=== PATIENT | female | born 1940 | race Hispanic/Latino ===

== ENCOUNTER 2017-01-30 12:27 | Observation (INO) | payer MEDICARE, OTHER ==
--- NOTE | 2017-01-30 12:39 | ED PDOC ---
HPI: Trauma/Fall - HPI Time Seen by Provider: 01/30/17 12:30 History Per: Patient History/Exam Limitations: no limitations Onset/Duration Of Symptoms: Mins Location Of Injury: Right: Foot Additional Complaint(s): Esthela Culver is a 76 year old female that presents to the ED after the headboard of her bed slipped and fell onto her right foot after she had attempted to move it. Patient reports that the headboard had an attached mirror , which cut her toes. Tetanus not UTD. Past Medical History Reviewed: Historical Data, Nursing Documentation, Vital Signs - Surgical History Other surgeries: open heart surgery - Family History Family History: States: Unknown Family Hx - Home Medications Home Medications: Ambulatory Orders Medication Instructions Recorded Cephalexin [Keflex] 500 mg PO BID #14 capsule 01/30/17 - Allergies Allergies/Adverse Reactions: Allergies Allergy/AdvReac Type Severity Reaction Status Date / Time No Known Allergies Allergy Verified 01/30/17 12:31 Review of Systems Musculoskeletal: Positive for: Other (lacerations along toes of right foot) Physical Exam - Reviewed Nursing Documentation Reviewed: Yes Vital Signs Reviewed: Yes - Physical Exam Appears: Positive for: Non-toxic, No Acute Distress Head Exam: Positive for: ATRAUMATIC, NORMOCEPHALIC Skin: Positive for: Normal Color, Warm Eye Exam: Positive for: Normal appearance, EOMI, PERRL Pulses-Post. Tibialis (L): 2+ Pulses-Post. Tibialis (R): 2+ Extremity: Positive for: Tenderness (tenderness to toes of right foot), Swelling (mild swelling toes of right foot), Other (Lacerations through subcutaneous fat, damaging nail beds, on toes 2, 3, and 4 on right foot. Actively bleeding. toe 3 has signficant avulsion of skin with muscle exposed. ) Neurologic/Psych: Positive for: Alert, Oriented. Negative for: Motor/Sensory Deficits - ECG ECG: Positive for: Interpreted By Me ECG Rhythm: Positive for: Normal QRS, Sinus Bradycardia (54), ST/T Changes Rate: 54 Medical Decision Making Medical Decision Making: Impression: Lacerations on Toes of Right Foot Plan: * X-Ray Right Foot-fx noted. * Ibuprofen 600 mg PO * TDAP * Podiatry consult * Reevaluation 15:30 Patient will go to OR for laceration repair due to extent of injury. Pt will be admitted to [facility] for same say procedure. Scribe Attestation: Documented by Ruth Vallecillo, acting as a scribe for Greta Perkins PA-C. Provider Scribe Attestation: All medical record entries made by the Scribe were at my direction and personally dictated by me. I have reviewed the chart and agree that the record accurately reflects my personal performance of the history, physical exam, medical decision making, and the department course for this patient. I have also personally directed, reviewed, and agree with the discharge instructions and disposition. Disposition - Clinical Impression Clinical Impression: Laceration, Toe injury - Patient ED Disposition Is Patient to be Admitted: Yes - Disposition Referrals: Podiatry Clinic [Outside] Disposition Time: 15:30 Condition: STABLE Prescriptions: Cephalexin [Keflex] 500 mg PO BID #14 capsule - Pt Status Changed To: Hospital Disposition Of: SDS- Endo,OR,Cath,IR
[2017-01-30] MEDS ORDERED: Lidocaine 1% Inj (20ml) IJ STA (12:41)
[2017-01-30] MEDS ORDERED: Lidocaine 1% Inj (20ml) ONE ×2 (13:13→17:14)
--- NOTE | 2017-01-30 13:27 | RAD ---
PROCEDURE: Right Foot Radiographs. HISTORY: Direct trauma COMPARISON: None. FINDINGS: BONES: Crush injuries involving the distal patricio of the 2nd 3rd and possibly full with digits. JOINTS: Normal. SOFT TISSUES: Soft tissue swelling attests to the acuity of the fracture. OTHER FINDINGS: None. IMPRESSION: Fractures involving distal tuft 2nd 3rd and possibly 4th digits. Associated soft tissue swelling identified. No preliminary report provided by emergency department personnel.
--- NOTE | 2017-01-30 14:00 | CP.PCM.CON ---
History of Present Illness - History of Present Illness History of Present Illness: Consult note for Dr. Deshpande 76 year old female presents to ED with lacerations to the right foot. Patient states that around 11:30 am today she was moving a heavy mirror and it fell on her foot. She states that it was bleeding a lot and she covered it with rags. She admits that she takes aspirin. Denies any pain on palpation to the digits on her right foot. Denies n/v/f/c/sob/cp. Past Patient History - Past Social History Smoking Status: Unknown If Ever Smoked - CARDIAC Hx Cardiac Disorders: Yes - PULMONARY Hx Respiratory Disorders: No - NEUROLOGICAL Hx Neurological Disorder: No - HEENT Hx HEENT Problems: No - RENAL Hx Chronic Kidney Disease: No - ENDOCRINE/METABOLIC Hx Endocrine Disorders: No - HEMATOLOGICAL/ONCOLOGICAL Hx Blood Disorders: No - INTEGUMENTARY Hx Dermatological Problems: No - MUSCULOSKELETAL/RHEUMATOLOGICAL Hx Musculoskeletal Disorders: No - GASTROINTESTINAL Hx Gastrointestinal Disorders: No - GENITOURINARY/GYNECOLOGICAL Hx Genitourinary Disorders: No - PSYCHIATRIC Hx Substance Use: No - SURGICAL HISTORY Hx Surgeries: Yes Hx Coronary Artery Bypass Graft: Yes - ANESTHESIA Hx Anesthesia: Yes Hx Anesthesia Reactions: No Hx Malignant Hyperthermia: No Meds Home Medications: Home Medication List Medication Instructions Recorded Confirmed Type Cephalexin [Keflex] 500 mg PO BID #14 capsule 01/30/17 Rx Allergies/Adverse Reactions: Allergies Allergy/AdvReac Type Severity Reaction Status Date / Time No Known Allergies Allergy Verified 01/30/17 12:31 Physical Exam - Constitutional Appears: Well, Non-toxic, No Acute Distress - Extremities Exam Additional comments: Right lower extremity focused exam: Vasc: DP pulses palpable 1/4, PT pulse palpable 2/4. Skin temperature warm to warm from proximal to distal Neuro:gross sensation intact Derm:Open lacerations noted to digits 2,3,4 on the right. 3rd digit has bone and tendon exposed with the skin peeled back from the subcutaneous tissue. Digits 2,3,4 distal tips of dusky in coloration. Sangineous drainage noted. Edema noted to digits 2,3,4. Nail plate 2 on the right is damaged. Ortho: Mild tenderness on palpation to digits 2,3,4 on the right - Neurological Exam Neurological exam: Alert, Oriented x3 - Psychiatric Exam Psychiatric exam: Normal Affect, Normal Mood Results - Vital Signs Recent Vital Signs: Last Vital Signs Temp 97.7 F 01/30/17 12:42 Pulse 78 01/30/17 12:42 Resp 18 01/30/17 12:42 BP 157/74 H 01/30/17 12:42 Pulse Ox 98 01/30/17 12:42 - Labs Result Diagrams: 01/30/17 16:10 01/30/17 16:10 Assessment & Plan - Assessment and Plan (Free Text) Assessment: 76 year old female with crush injury noted to digits 2,3,4 on the right foot with open lacerations Plan: patient examined and evaluated discussed in detail with attending, Dr. Deshpande chart and vitals reviewed radiographs reviewed:Fractures involving distal tuft 2nd 3rd and possibly 4th digits. Associated soft tissue swelling identified. verbal consent was obtained, patients right digits 2,3,4 were anesthetized with 5 mL of 1% lidocaine plain a local block fashion, foot was prepped and draped in a normal sterile manner, after further assessment, the damage to the 3rd digit is deep to bone and needs to be cleansed and sutured in the OR NPO status confirmed 10 am this morning patient aware of risk, benefits, complications, and alternatives for surgical procedure, patient is agreeable to surgical procedure patient to follow up with Podiatry in clinic on Wednesday
[2017-01-30 16:25] LABS: BASO # 0.1 K/uL (0.0-0.2); BASO % 1.4 % (0.0-2.0); EOS # 0.2 K/uL (0.0-0.7); EOS % 2.3 % (0.0-4.0); HEMATOCRIT 42.6 % (34.0-47.0); LYMPH # 2.1 K/uL (1.0-4.3); LYMPH % 25.9 % (20.0-40.0); MEAN CELL VOLUME 85.2 fl (81.0-99.0); MEAN CORPUSCULAR HEMOGLOBIN 27.7 pg (27.0-31.0); MEAN CORPUSCULAR HGB CONC 32.5 g/dL (33.0-37.0); MEAN PLATELET VOLUME 8.3 fl (7.2-11.7); MONO # 0.6 K/uL (0.0-0.8); MONO % 7.5 % (0.0-10.0); NEUT # 5.1 K/uL (1.8-7.0); NEUT % 62.9 % (50.0-75.0); NRBC % 0.1 % (0.0-0.0); RED CELL DISTRIBUTION WIDTH 14.1 % (11.5-14.5); WHITE BLOOD COUNT 8.2 K/uL (4.8-10.8)
[2017-01-30 16:36] LABS: PARTIAL THROMBOPLASTIN TIME 29.4 Seconds (25.6-37.1)
[2017-01-30 16:38] LABS: ALB/GLOB RATIO 1.6 (1.0-2.1); ALKALINE PHOSPHATASE 60 U/L (38-126); ALT/SGPT 36 U/L (9-52); AST/SGOT 34 U/L (14-36); BILIRUBIN,TOTAL 0.6 mg/dl (0.2-1.3); BLOOD UREA NITROGEN 21 mg/dl (7-17); CALCIUM 9.9 mg/dL (8.4-10.2); CARBON DIOXIDE 28 mmol/L (22-30); CHLORIDE 100 mmol/L (98-107); GFR AFRICAN-AMERICAN > 60; GLUCOSE,RANDOM 102 mg/dL (65-105); SODIUM 138 mmol/l (132-148); TOTAL PROTEIN 7.4 G/DL (6.3-8.2)
--- NOTE | 2017-01-30 16:45 | CP.PCM.HP ---
History of Present Illness - History of Present Illness History of Present Illness: 76 year old female with PMH of CAD s/p CABG x 2 with aortic valve replacement in 2004 that presented to the ED with complaints of right foot injury. This morning, the patient was moving her headboard that had mirror on it when she subsequently dropped it on her foot. She then proceeded to come to the ED. She denies any pain presently. Admits she knows she should not have been moving the headboard by herself. Pt would like to go home as soon as possible. She has good effort tolerance and walks on a treadmill at 4% incline most days of the week without difficulty. Patient denies any other medical problems. 12 point review of systems negative except for as above. PMH: CAD Medications: Aspirin, Atenolol, Glucosamine Allergies: NKDA Social : Denies tobacco use. Social etoh use. Surgical Hx: appendectomy, CABG with valve repair, right hand sx for carpal tunnel Present on Admission - Present on Admission Any Indicators Present on Admission: No Past Patient History - Past Medical History & Family History Past Medical History?: Yes - Past Social History Smoking Status: Unknown If Ever Smoked - CARDIAC Hx Cardiac Disorders: Yes - PULMONARY Hx Respiratory Disorders: No - NEUROLOGICAL Hx Neurological Disorder: No - HEENT Hx HEENT Problems: No - RENAL Hx Chronic Kidney Disease: No - ENDOCRINE/METABOLIC Hx Endocrine Disorders: No - HEMATOLOGICAL/ONCOLOGICAL Hx Blood Disorders: No - INTEGUMENTARY Hx Dermatological Problems: No - MUSCULOSKELETAL/RHEUMATOLOGICAL Hx Musculoskeletal Disorders: No - GASTROINTESTINAL Hx Gastrointestinal Disorders: No - GENITOURINARY/GYNECOLOGICAL Hx Genitourinary Disorders: No - PSYCHIATRIC Hx Substance Use: No - SURGICAL HISTORY Hx Surgeries: Yes Hx Coronary Artery Bypass Graft: Yes - ANESTHESIA Hx Anesthesia: Yes Hx Anesthesia Reactions: No Hx Malignant Hyperthermia: No Meds Home Medications: Home Medication List Medication Instructions Recorded Confirmed Type Cephalexin [Keflex] 500 mg PO BID #14 capsule 01/30/17 Rx Allergies/Adverse Reactions: Allergies Allergy/AdvReac Type Severity Reaction Status Date / Time No Known Allergies Allergy Verified 01/30/17 12:31 Physical Exam - Constitutional Appears: Well, No Acute Distress - Head Exam Head Exam: ATRAUMATIC, NORMAL INSPECTION, NORMOCEPHALIC - Eye Exam Eye Exam: EOMI, Normal appearance, PERRL - Respiratory Exam Respiratory Exam: Clear to Auscultation Bilateral, NORMAL BREATHING PATTERN Additional comments: good air entry bilaterally - Cardiovascular Exam Cardiovascular Exam: Bradycardia, REGULAR RHYTHM, +S1, +S2 - GI/Abdominal Exam GI & Abdominal Exam: Normal Bowel Sounds, Soft. absent: Tenderness - Extremities Exam Extremities exam: Positive for: normal inspection Additional comments: right foot wound not visualized. - Back Exam Back exam: NORMAL INSPECTION - Neurological Exam Neurological exam: Alert, CN II-XII Intact, Oriented x3 - Psychiatric Exam Psychiatric exam: Normal Affect, Normal Mood - Skin Skin Exam: Dry, Intact, Normal Color Results - Vital Signs Recent Vital Signs: Last Vital Signs Temp 98 F 01/30/17 16:40 Pulse 58 L 01/30/17 16:40 Resp 18 01/30/17 16:40 BP 113/57 L 01/30/17 16:40 Pulse Ox 100 01/30/17 16:40 - Labs Result Diagrams: 01/30/17 16:10 01/30/17 16:10 Assessment & Plan - Assessment and Plan (Free Text) Assessment: 76 year old female with significant cardiac history, with laceration of her right foot. Seen and evaluated by podiatry. Will be taken to OR for lac repair. Patient received TDAP. All labs and imaging available reviewed. Case d/w Podiatry.
[2017-01-30 16:52] LABS: POTASSIUM 3.5 MMOL/L (3.6-5.0)
[2017-01-30] MEDS ORDERED: Propofol 10 mg/ml Inj (20 ML) ONE (16:55)
[2017-01-30] MEDS ORDERED: Midazolam 2 MG/2 ML VIAL ONE (16:55)
[2017-01-30] MEDS ORDERED: Lidocaine Hydrochloride 5 ML INJ ONE (16:56)
[2017-01-30] MEDS ORDERED: Lactated Ringer's 1,000 ML IV ONE (17:15)
[2017-01-30] MEDS ORDERED: Lidocaine 1% Inj (20ml) IJ ONE (17:30)
--- NOTE | 2017-01-30 18:17 | PCM.SURG1 ---
Surgeon's Initial Post Op Note - Surgeon's Notes Surgeon: Dr. Deshpande DPM [employer] Wash Supervisor: Dr. Baumann DPM PGY-2 Type of Anesthesia: IV Sedation, Local Anesthesia Administered By: Dr. Kamara Pre-Operative Diagnosis: right foot crush injury with laceration, open fracture with exposed bone 3rd digit, 2nd digit, tendon laceration 3rd digit, open complex laceration 4th digit Operative Findings: see dictation Post-Operative Diagnosis: same Operation Performed: right foot pulse lavage of open complex wound digits 2,3,4 , repair of extensor tendon 3rd digit Specimen/Specimens Removed: none Estimated Blood Loss: EBL {In ML}: 10 Blood Products Given: N/A Drains Used: No Drains Post-Op Condition: Good Date of Surgery/Procedure: 01/30/17 Time of Surgery/Procedure: 18:17
[2017-01-30] MEDS ORDERED: Oxycodone/Acetaminophen 5/325 mg Tab PO PRN ×2 (18:18)
[2017-01-30 22:01] VITALS: PULSE 59
[2017-01-30 22:02] VITALS: BP 132/66; RESP 19; TEMP 98.1; O2SAT 99
--- NOTE | 2017-02-01 11:17 | CARD ---
APPROVED REPORT EKG Measurement Heart [id number] <Conclusion> Sinus bradycardia Nonspecific ST and T wave abnormality Abnormal ECG
--- NOTE | 2017-02-01 23:09 | OP ---
PROCEDURE DATE: 01/30/2017 PREOPERATIVE DIAGNOSES: 1. Right foot crush injury with open laceration to digit 2. 2. Right foot extensor tendon laceration, digit 3 with exposed bone. 3. Right foot crush injury with open complex laceration, digit 3. 4. Right foot crush injury with open complex laceration, digit 4. POSTOPERATIVE DIAGNOSES: 1. Right foot crush injury with open laceration to digit 2. 2. Right foot extensor tendon laceration, digit 3 with exposed bone. 3. Right foot crush injury with open complex laceration, digit 3. 4. Right foot crush injury with open complex laceration, digit 4. PROCEDURES: 1. Right foot repair of complex wound, digit 2. 2. Right foot repair of extensor tendon, 3rd digit. 3. Right foot repair of complex wound, digit 3. 4. Right foot repair of complex wound, digit 4. SURGEON: Ga Deshpande DPM TYRE FINISHER AND EXAMINER: Allegra Baumann DPM, PGY2 TYPE OF ANESTHESIA: IV sedation with local. ANESTHESIA ADMINISTERED BY: Moises Kamara MD INDICATIONS: The patient is a 76-year-old female who sustained a crush injury to her right foot digits 2, 3, and 4 with fractures of the distal tuft as well as an open complex wound. There is a concern for vascular compromise to digits 2, 3, and 4. The digits are noted to be dusky and the skin flaps are noted to be whitish in color. The patient exhausted conservative treatment at this time and now requires surgical intervention. The patient signed the consent after careful explanation of risks, benefits, complications, and alternatives to surgical procedure. No guarantees were given or implied. PREPARATION: The patient was brought into the operating room and placed on the operating room table on a supine position. No tourniquet was applied. A time-out was performed for identification of the correct patient and procedure. The patient received a total of 4 mL of 1% lidocaine plain in a local block fashion to the right forefoot. Once local anesthesia was achieved, the right foot was then prepped and draped in a normal sterile manner and the procedure began. PROCEDURE 1: Right foot repair of complex wound, digit 2. Attention was directed to the dorsal aspect of the 2nd digit where the complex laceration was noted and measured approximately 3 cm. Utilizing a pulse lavage with copious amounts of normal sterile saline with gentamicin, the area was irrigated. The skin was noted to be friable. The subcutaneous tissue was reapproximated using #4-0 Vicryl and the skin was reapproximated using #4-0 Prolene. PROCEDURE 2: Right foot repair of extensor tendons, 3rd digit. Attention was directed to the dorsal aspect of the 3rd digit where the complex laceration was noted and measured to be approximately 3.5 cm. Intermediae phalanx was exposed and the extensor tendon was noted to be lacerated. Utilizing pulse lavage with copious amounts of normal sterile saline and gentamicin, the area was irrigated. The extensor tendon was then repaired utilizing 4-0 Vicryl. PROCEDURE 3: Right foot repair of complex wound, digit 3. Attention was then directed to the complex laceration of the 3rd digit. The skin was noted to be friable. The subcutaneous tissue was reapproximated using 4-0 Vicryl. The skin was reapproximated using 4-0 Prolene. PROCEDURE 4: Right foot repair of complex wound, digit 4. Attention was directed to the dorsal aspect of the 4th digit where the complex laceration was noted and measured approximately 2 cm. Utilizing a pulse lavage with copious amounts of normal sterile saline with gentamicin, the area was irrigated. The skin was noted to be friable. The subcutaneous tissue was then reapproximated using 4-0 Vicryl and the skin was approximated using 4-0 Prolene. The right foot was then dressed with Xeroform, 4 x 4s, and lastly Gregory. Upon closure of site, return of color was noted to digits 2, 3, and 4 with increased warmth noted to the digits. There is concern for vascular disruption due to the crush injury. POSTOPERATIVE CONDITION: The patient tolerated the procedure and anesthesia well with no apparent complications or complaints. The patient was escorted from the operating room to ICU with vital signs and neurovascular structures intact. The patient's digits have began to regain color. The patient will follow up in clinic on Wednesday. The patient is to keep the dressing clean, dry, and intact. Allegra Baumann DPM Ga Deshpande DPM
== END 2017-01-30 21:45 | disposition home or self-care (01) ==
LOC: H.ER 12:27 → H.ERHOLD 16:17 → H.MEDSURG1 20:05
PROVIDERS: ADMIT Family Medicine Geriatric Medicine; ATTEND Family Medicine Geriatric Medicine
DX: S91.114A Laceration without foreign body of right lesser toe(s) without damage to nail, initial encounter (principal); S97.121A Crushing injury of right lesser toe(s), initial encounter; S92.531A Displaced fracture of distal phalanx of right lesser toe(s), initial encounter for closed fracture; S97.81XA Crushing injury of right foot, initial encounter; I25.10 Atherosclerotic heart disease of native coronary artery without angina pectoris; W22.8XXA Striking against or struck by other objects, initial encounter; Z23 Encounter for immunization; Z95.1 Presence of aortocoronary bypass graft; Z95.2 Presence of prosthetic heart valve; Z79.82 Long term (current) use of aspirin; Y92.003 Bedroom of unspecified non-institutional (private) residence as the place of occurrence of the external cause
CPT/HCPCS: 13132; 28208; 73630; 80053; 85025; 85610; 85730; 86850; 86900; 90471; 90715; 93005; 99284; G0378; J0690; J2250; J2704; J2765; J3010; J7030; J7120

== ENCOUNTER 2018-07-03 11:11 | Emergency (ER) | payer MEDICARE ==
[2018-07-03 11:17] VITALS: RESP 19; TEMP 97.3; O2SAT 100
--- NOTE | 2018-07-03 12:05 | ED PDOC ---
HPI: Back Time Seen by Provider: 07/03/18 11:27 Chief Complaint (Nursing): Back Pain Chief Complaint (Provider): Back Pain History Per: Patient History/Exam Limitations: no limitations Onset/Duration Of Symptoms: Days (x6) Current Symptoms Are (Timing): Still Present Additional Complaint(s): Patient is a 77 y/o female with a PMHx of CAD who presents to the ED for evalu ation of lower back pain ongoing for the past six days. Patient states she was in her kitchen when she slipped and fell backward. Patient reports she hit her back on the refrigerator. Since, patient has been complaining of pain while sitting or walking. Patient denies head injury, syncope, loss of consciousness, chest pain, weakness, and numbness. Of note, patient has been taking Tylenol but pain has not subsided. PCP: Dr. Mcneill ([facility]) Past Medical History Reviewed: Historical Data, Nursing Documentation, Vital Signs Vital Signs: Last Vital Signs Temp 97.3 F L 07/03/18 11:14 Pulse 77 07/03/18 11:14 Resp 19 07/03/18 11:14 BP 188/79 H 07/03/18 11:14 Pulse Ox 100 07/03/18 11:14 - Medical History PMH: CAD Denies: Chronic Kidney Disease - Surgical History Surgical History: CABG - Family History Family History: States: Unknown Family Hx - Immunization History Hx Tetanus Toxoid Vaccination: No Hx Influenza Vaccination: No Hx Pneumococcal Vaccination: No - Home Medications Home Medications: Ambulatory Orders Medication Instructions Recorded Cephalexin [Keflex] 500 mg PO BID #14 capsule 01/30/17 Back Brace [Back Stabilizer] 1 each MC ONCE #1 each 07/03/18 Cyclobenzaprine [Cyclobenzaprine 10 mg PO TID PRN #15 tab 07/03/18 HCl] Lidocaine 1 each TP DAILY #10 adh..patch 07/03/18 - Allergies Allergies/Adverse Reactions: Allergies Allergy/AdvReac Type Severity Reaction Status Date / Time Sulfa (Sulfonamide AdvReac PAIN Verified 07/03/18 11:19 Antibiotics) Review of Systems ROS Statement: Except As Marked, All Systems Reviewed And Found Negative Cardiovascular: Negative for: Chest Pain Musculoskeletal: Positive for: Back Pain (lower) Neurological: Negative for: Weakness, Numbness, Other (loss of consicousness and syncope) Physical Exam - Reviewed Nursing Documentation Reviewed: Yes Vital Signs Reviewed: Yes - Physical Exam Appears: Positive for: Non-toxic, No Acute Distress Head Exam: Positive for: ATRAUMATIC, NORMAL INSPECTION, NORMOCEPHALIC Skin: Positive for: Normal Color, Warm, Dry Eye Exam: Positive for: Normal appearance, EOMI Neck: Positive for: Normal, Painless ROM, Supple Cardiovascular/Chest: Positive for: Regular Rate, Rhythm. Negative for: Murmur Respiratory: Positive for: Normal Breath Sounds. Negative for: Respiratory Distress Gastrointestinal/Abdominal: Positive for: Normal Exam, Soft. Negative for: Tenderness Back: Positive for: Normal Inspection (no redness or crepitus), Other (deformity in lower thoracic spine). Negative for: L CVA Tenderness, R CVA Tenderness, Vertebral Tenderness Extremity: Positive for: Normal ROM. Negative for: Pedal Edema, Deformity Neurologic/Psych: Positive for: Alert, Oriented, Gait (steady) - ECG O2 Sat by Pulse Oximetry: 100 (RA) Pulse Ox Interpretation: Normal - Progress Re-evaluation Time: 13:03 Condition: Re-examined, Improved Medical Decision Making Medical Decision Making: Time: 1145 Impression: Back pain and injury DDx includes but not limited to thoracic or lumar spine fracture and musculoskeletal pain. Plan: EKG Spine Entire 2-3 Views [Rad] Toradol 15 mg IM Scribe Attestation: Documented by Sean Smith, acting as a scribe for Praful Amaya MD. Provider Scribe Attestation: All medical record entries made by the Scribe were at my direction and personally dictated by me. I have reviewed the chart and agree that the record accurately reflects my personal performance of the history, physical exam, medical decision making, and the department course for this patient. I have also personally directed, reviewed, and agree with the discharge instructions and disposition. Disposition - Clinical Impression Clinical Impression: Back pain - Patient ED Disposition Is Patient to be Admitted: No Doctor Will See Patient In The: Office Counseled Patient/Family Regarding: Studies Performed, Diagnosis, Need For Followup - Disposition Disposition: Routine/Home Disposition Time: 13:03 Condition: GOOD Additional Instructions: MOSHE ALLEN, thank you for letting us take care of you today. Your provider was Praful Amaya MD and you were treated for FALL;BACK PAIN. The emergency medical care you received today was directed at your acute symptoms. If you were prescribed any medication, please fill it and take as directed. It may take several days for your symptoms to resolve. Return to the Emergency Department if your symptoms worsen, do not improve, or if you have any other problems. Please contact your doctor or call one of the physicians/clinics you have been referred to that are listed on the Patient Visit Information form that is included in your discharge packet. Bring any paperwork you were given at discharge with you along with any medications you are taking to your follow up visit. Our treatment cannot replace ongoing medical care by a primary care provider outside of the emergency department. Thank you for allowing the [facility] team to be part of your care today. If you had an X-Ray or CT scan: A Radiologist will review the ED reading if any change in treatment is needed we will contact you. If you had a blood, urine, or wound culture: It will take several days for the results, if any change in treatment is needed we will contact you. If you had an STI test: It will take 48 hours for the results. Please call after 1 week if you have not heard back. Prescriptions: Back Brace [Back Stabilizer] 1 each MC ONCE #1 each Cyclobenzaprine [Cyclobenzaprine HCl] 10 mg PO TID PRN #15 tab PRN Reason: Muscle Spasm Lidocaine 1 each TP DAILY #10 adh..patch Instructions: Low Back Pain in Adults
--- NOTE | 2018-07-03 12:33 | RAD ---
Date of service: 07/03/2018 PROCEDURE: Thoracic and lumbar spine radiographs HISTORY: back injury pain COMPARISON: None. TECHNIQUE: AP, lateral views of the thoracic and lumbar spine FINDINGS: There is no acute fracture. Mild multilevel degenerative changes are evident. Calcified cholelithiasis is seen. IMPRESSION: No acute fracture. Degenerative changes. Cholelithiasis.
[2018-07-03 13:40] VITALS: BP 133/73; PULSE 76
--- NOTE | 2018-07-04 09:14 | CARD ---
APPROVED REPORT Date of service: 07/03/2018 EKG Measurement Heart [id number] FL 128P3 [id number] <Conclusion> Normal sinus rhythm Normal ECG
== END 2018-07-03 13:07 | disposition home or self-care (01) ==
LOC: H.ER 11:11
DX: M54.5 Low back pain (principal); W18.12XA Fall from or off toilet with subsequent striking against object, initial encounter; Y92.000 Kitchen of unspecified non-institutional (private) residence as the place of occurrence of the external cause; Z88.2 Allergy status to sulfonamides; Z95.1 Presence of aortocoronary bypass graft